=== PATIENT | female | born 1940 | race Caucasian/White ===

== ENCOUNTER 2024-02-12 22:43 | Emergency (ER) | payer OTHER, SELFPAY ==
[2024-02-12 22:47] VITALS: BP 144/75
[2024-02-12] MEDS: PEPCID 20 MG IV (23:50)
[2024-02-12] MEDS: BENADRYL 25 MG IV (23:50)
[2024-02-12] MEDS: DECADRON 10 MG IV (23:50)
[2024-02-12] MEDS: NSS 500 IV (23:51)
--- NOTE | 2024-02-12 23:59 | ED.GENMED ---
History of Present Illness
General
Chief Complaint: Skin Problem
Source: patient
Exam Limitations: none
Time Seen by Provider: 02/12/24 23:22
Nursing documentation reviewed up to this point in time: agreed with
Travel History
Have you had any contact with someone who has COVID-19?: No
Do you have any symptoms of coronavirus? Fever > 100 degrees, chills, cough, shortness of breath, sore throat, loss of taste or smell, muscle aches, or headache?: No
History of Present Illness
History of Present Illness:
Patient with history of dementia, presents to ED accompanied by primary caregiver, presents to ED secondary to worsening rash over the past 2 days. Patient denies pain or itching sensation. However, secondary to dementia, caregiver is not sure
whether or not she will be able to express any of the sensation. Denies recent illness. Denies recent change in medications or diet. Caregiver unsure of any change in detergent or soap or any other products at home. Denies previous history of
similar symptoms.
Review of Systems
Review of Systems
Allergies reviewed?: Yes
All Other Systems: ROS reviewed and negative except as documented in HPI and ROS
Constitutional: Reports no symptoms; Denies fever
Respiratory: Reports no symptoms
Musculoskeletal: Reports no symptoms
Skin: Reports rash
Neurological: Reports no symptoms
Phy Exam
Physical Exam
Physical Exam:
Physical Exam
General: no apparent distress, not acutely ill. afebrile
Head: nc/at. eomi
Neck: supple. normal range of motion
Neuro: alert and oriented. no focal neurological deficits
Skin: multiple macular rash noted, scattered over abdomen, LE/UE, sparing face
Psychiatric: well kept. interactive and cooperative
Extremities: no edema. no calf tenderness.
Course
Orders/Labs/Results
Orders:
Orders
02/12/24 23:36
0.9% Sodium Chloride 500 ml [Nss] 500 ml IV BOLUS
Dexamethasone Sod Phosphate [Decadron] 10 mg IV NOW STA
Diphenhydramine [Benadryl] 25 mg IV NOW STA
Famotidine [Pepcid] 20 mg IV NOW STA
Vital Signs
Initial and Last Documented VS:
Initial Vital Signs
Temp Pulse BP Pulse Ox
98.1 F 59 144/75 97
02/12/24 22:47 02/12/24 22:47 02/12/24 22:47 02/12/24 22:47
Last Documented Vital Signs
Temp Pulse BP Pulse Ox
98.1 F 59 144/75 97
02/12/24 22:47 02/12/24 22:47 02/12/24 22:47 02/13/24 00:45
MDM/Problems Addressed
MDM/Problems Addressed:
Pt with improvement in symptoms after treatment.
History and exam consistent with nonspecific rash, possible acute allergic reaction. Otherwise, patient is afebrile, hemodynamically stable, and without any distress during observation. Patient will be discharged home in stable condition, to the
care of her caregiver. Prescription for 1 more dose of Decadron will be provided, to be taken, if rash continues over the next 24 to 48 hours.
*Critical Care Note
Total Time (30-74mins, 75-104mins- exclusive of procedures): Not Applicable
ED Attending Note
-
Portions of this chart may have been created with voice recognition software.� Occasional wrong word or��sound alike� substitutions may have occurred due to the inherent limitations of voice recognition software.
Discharge Plan
Departure
Patient Disposition: Home (Routine Discharge)
Date of Disposition: 02/13/24
Time of Disposition: 00:57
Patient with high blood pressure during this ER visit?: Yes
Discharge Problem:
Rash
Instructions: Skin Rash (DC)
Prescriptions:
New
dexamethasone 2 mg tablet
10 mg PO DAILY Qty: 5 0RF
Referrals:
Azrilevich,Flaquito L., MD [Family Provider] -
Activity Restrictions/Additional Instructions:
As discussed, please follow-up with your primary care physician with any further concerns. You may take 1 additional treatment of dexamethasone, if your rash continues beyond the next 24 to 48 hours
Interventions
Interventions:
*Risk Screen - Suicide Last Done: 02/12/24 23:31
*General Assessment Last Done: 02/12/24 23:31
*Neglect/Abuse Screening Last Done: 02/12/24 23:31
ED- Fall Risk Assessment Last Done: 02/12/24 23:31
*ED COVID-19 Vaccine History Last Done: 02/13/24 01:00
*Nursing Disposition Last Done: 02/13/24 01:00
ED-Skin Assessment Last Done: 02/12/24 23:31
Discharge Date and Time
Discharge Date/Time: 02/13/24 01:01
Print Language: Maldivian
== END 2024-02-13 01:01 | disposition home or self-care (01) ==
LOC: EMR 22:43
PROVIDERS: EMERGENCY PHYSICIAN Emergency Medicine; FAMILY PHYSICIAN Internal Medicine
DX: R21 Rash and other nonspecific skin eruption (principal); R03.0 Elevated blood-pressure reading, without diagnosis of hypertension; F03.90 Unspecified dementia, unspecified severity, without behavioral disturbance, psychotic disturbance, mood disturbance, and anxiety
CPT/HCPCS: 99284; 96374; 96375 ×2; 96361